=== PATIENT | female | born 1940 | race Caucasian/White ===

== ENCOUNTER 2016-09-28 09:29 | Outpatient (CLI) | payer MEDICARE, BC ==
[~2016-09-28] VITALS: Ht 165.1 cm; Wt 65.9 kg
[~2016-09-28 09:29] MED LIST: CALCIUM PO; CHILDREN'S ASPI81 MG PO; GLUCOSAMINE HC500 MG PO; VITAMIN B-121000 MCG PO; VITAMIN D31000 UNIT PO
[2016-09-28 09:52] VITALS: BP 96/50; Ht 165.1 cm; Wt 65.9 kg
--- NOTE | 2016-09-28 10:04 | NUR ---
0945 ASSISTED TO ROM. RESP EVEN AND NONLABORED. ASSESSMENT DONE V/S TAKEN. RECHECKED B/P AND 143/75 SPOUSE STATED IT IS NORMALLY NOT LOW ORIGINALLY GOT 96/50.
--- NOTE | 2016-09-28 10:06 | NUR ---
0956 PROLIA INFORMATION PROVIDE. PROLIA INJECTION GIVEN LT ARM SUBCUTANEOUS SITE CLEAR. TOLERATED IT WELL.
--- NOTE | 2016-09-28 10:08 | NUR ---
1008 DISCHARGE INSTRUCTIONS GIVEN AND TOLD TO CONTINUE HOME MEDS AND DIET AND FOR PROLIA IN 6 MONTHS.
--- NOTE | 2016-09-28 10:18 | NUR ---
1015 LEFT VIA W/C WITH SPOUSE.
== END 2016-09-28 10:16 | disposition home or self-care (01) ==
LOC: D.OPS 09:29
DX: M81.0 Age-related osteoporosis without current pathological fracture (principal)

== ENCOUNTER 2017-03-29 10:31 | Outpatient (CLI) | payer MEDICARE, BC ==
[~2017-03-29] VITALS: Ht 165.1 cm; Wt 62.7 kg
[2017-03-29 11:14] VITALS: BP 128/78; Ht 165.1 cm; Wt 62.7 kg
== END 2017-03-29 11:28 ==
LOC: D.OPS 10:31
DX: M81.0 Age-related osteoporosis without current pathological fracture (principal)

== ENCOUNTER 2017-09-23 10:34 | Emergency (ER) | payer MEDICARE, BC ==
[2017-03-29 11:14] VITALS: BMI 23.0
[2017-09-23 11:37] LABS: BASOPHILS 0.4 % (0-2); EOSINOPHILS 1.7 % (0-7); HEMATOCRIT 38.4 % (36.0-48.0); HEMOGLOBIN 12.7 g/dL (12-16); IMMATURE GRANULOCYTES 0.1 % (0-5); LYMPHOCYTES 23.1 % (15-50); MCH 31.3 pg (26.0-34.0); MCHC 33.1 g/dL (31.0-37.0); MCV 94.6 fL (80.0-100.0); MEAN PLATELET VOLUME 9.4 fL (7.4-10.4); NEUTROPHILS 67.7 % (40-80); PLATELET COUNT 301 10x3/uL (130-400); RBC 4.06 10x6/uL (4.00-5.40); RDW 13.9 % (11.5-14.5); WBC 9.3 10x3/uL (4.8-10.8)
[2017-09-23 12:04] LABS: ALBUMIN 3.4 g/dL (3.4-5.0); ALKALINE PHOSPHATASE 84 U/L (46-116); ALT (SGPT) 18 U/L (10-68); CALC OSMOLALITY 278 mosm/kg (275-300); CALCIUM 9.8 mg/dL (8.5-10.1); CARBON DIOXIDE 28.1 mmol/L (21.0-32.0); CHLORIDE - SERUM 104 mmol/L (98-107); CHOL - HDL RATIO 4.7 ratio (2.3-4.1); CHOLESTEROL, TOTAL 222 mg/dL (0-200); CKMB 0.9 U/L (0.0-3.6); CREATINE KINASE 83 UL (21-215); CREATININE - SERUM 0.9 mg/dL (0.6-1.3); GLUCOSE 86 mg/dL (74-106); HDL CHOLESTEROL 47 mg/dL (32-96); LDL CHOLESTEROL 144 mg/dL (0-100); LDL-HDL RATIO 3.1 ratio (1.5-3.5); POTASSIUM - SERUM 4.6 mmol/L (3.5-5.1); PROTEIN - SERUM 7.2 g/dL (6.4-8.2); SODIUM 140 mmol/L (136-145); TRIGLYCERIDE 159 mg/dL (30-200); TROPONIN-I < 0.017 ng/mL (0.000-0.060); eGFR NON AFRICAN AMERICAN 65 mL/min (90-120)
[2017-09-23 12:05] LABS: UREA NITROGEN 16 mg/dL (7-18)
== END 2017-09-23 14:10 | disposition home or self-care (01) ==
LOC: D.ER 10:34
PROVIDERS: Family Medicine
DX: R07.89 Other chest pain (principal); I10 Essential (primary) hypertension; G30.9 Alzheimer's disease, unspecified; F02.80 Dementia in other diseases classified elsewhere, unspecified severity, without behavioral disturbance, psychotic disturbance, mood disturbance, and anxiety; R00.1 Bradycardia, unspecified

== ENCOUNTER 2017-09-27 12:55 | Outpatient (CLI) | payer MEDICARE, BC ==
[~2017-09-27] VITALS: Ht 165.1 cm; Wt 61.4 kg
[2017-09-27 14:00] VITALS: BP 139/75; Ht 165.1 cm; Wt 61.4 kg
== END 2017-09-27 14:15 | disposition home or self-care (01) ==
LOC: D.OPS 12:55
DX: M81.0 Age-related osteoporosis without current pathological fracture (principal)

== ENCOUNTER 2018-04-03 12:43 | Outpatient (CLI) | payer MEDICARE, BC ==
[~2018-04-03] VITALS: Ht 165.1 cm; Wt 63.6 kg
[2018-04-03 14:02] VITALS: BP 145/70; Ht 165.1 cm; Wt 63.6 kg
== END 2018-04-03 14:19 | disposition home or self-care (01) ==
LOC: D.OPS 12:43
DX: M81.0 Age-related osteoporosis without current pathological fracture (principal); Z01.812 Encounter for preprocedural laboratory examination

== ENCOUNTER 2018-09-27 12:13 | Emergency (ER) | payer MEDICARE, BC ==
[~2018-09-27] VITALS: Ht 165.1 cm; Wt 59.1 kg
[2018-09-27 12:26] VITALS: Ht 165.1 cm; Wt 59.1 kg
[2018-09-27 13:11] LABS: BASOPHILS 0.2 % (0-2); EOSINOPHILS 0.1 % (0-7); HEMOGLOBIN 12.9 g/dL (12-16); IMMATURE GRANULOCYTES 0.2 % (0-5); LYMPHOCYTES 11.6 % (15-50); MCHC 33.1 g/dL (31.0-37.0); MCV 93.8 fL (80.0-100.0); MONOCYTES 3.5 % (2-11); NEUTROPHILS 84.4 % (40-80); RBC 4.16 10x6/uL (4.00-5.40); RDW 13.5 % (11.5-14.5); WBC 11.9 10x3/uL (4.8-10.8)
[2018-09-27 13:17] LABS: PLATELET COUNT 441 10x3/uL (130-400)
[2018-09-27 13:31] LABS: ALBUMIN 3.4 g/dL (3.4-5.0); ALKALINE PHOSPHATASE 115 U/L (46-116); ALT (SGPT) 27 U/L (10-68); CALCIUM 9.7 mg/dL (8.5-10.1); CARBON DIOXIDE 26.4 mmol/L (21.0-32.0); CKMB 1.2 U/L (0.0-3.6); CREATINE KINASE 59 UL (21-215); CREATININE - SERUM 1.4 mg/dL (0.6-1.3); GLUCOSE 164 mg/dL (74-106); MAGNESIUM - SERUM 2.2 mg/dL (1.8-2.4); PROTEIN - SERUM 8.2 g/dL (6.4-8.2); THYROID STIMULATING HORMONE 2.34 uIU/mL (0.36-3.74); TROPONIN-I < 0.017 ng/mL (0.000-0.060); UREA NITROGEN 29 mg/dL (7-18); eGFR NON AFRICAN AMERICAN 39 mL/min (90-120)
[2018-09-27 13:32] LABS: CALC OSMOLALITY 288 mosm/kg (275-300); CHLORIDE - SERUM 101 mmol/L (98-107); POTASSIUM - SERUM 3.1 mmol/L (3.5-5.1); SODIUM 140 mmol/L (136-145)
[2018-09-27 14:33] LABS: APTT 32.4 SECONDS (22.8-39.4); INR 1.07 (0.85-1.17); PROTIME 13.4 SECONDS (11.6-15.0)
[2018-09-27 14:53] LABS: APPEARANCE CLOUDY (CLEAR); BILIRUBIN NEGATIVE (NEGATIVE); COLOR YELLOW (YELLOW); EPITHELIAL CELLS 0-5 /hpf (0-5); GLUCOSE NEGATIVE (NEGATIVE); KETONE NEGATIVE (NEGATIVE); NITRITE NEGATIVE (NEGATIVE); PROTEIN 1+ mg/dL (NEGATIVE); RED CELLS - URINE 0-5 /hpf (0-5); SPECIFIC GRAVITY 1.015 (1.005-1.020); UROBILINOGEN NORMAL (NORMAL)
[2018-09-27 14:54] LABS: BACTERIA MANY /hpf (NONE SEEN)
[2018-09-27 14:55] LABS: UDS - AMPHET NEGATIVE QUAL (NEGATIVE); UDS - BARB NEGATIVE QUAL (NEGATIVE); UDS - BENZO NEGATIVE QUAL (NEGATIVE); UDS - COCAINE NEGATIVE QUAL (NEGATIVE); UDS - OPIATE NEGATIVE QUAL (NEGATIVE); UDS - PCP NEGATIVE QUAL (NEGATIVE); UDS - THC NEGATIVE QUAL (NEGATIVE)
[2018-09-27] MEDS ORDERED: SULFAMETHOXAZOL1 TA3 PO (15:07)
[2018-09-27 17:39] VITALS: BP 169/87
== END 2018-09-27 17:40 | disposition home or self-care (01) ==
LOC: D.ER 12:13
PROVIDERS: Family Medicine
DX: F03.90 Unspecified dementia, unspecified severity, without behavioral disturbance, psychotic disturbance, mood disturbance, and anxiety (principal); I10 Essential (primary) hypertension; N28.9 Disorder of kidney and ureter, unspecified

== ENCOUNTER 2018-10-09 12:33 | Outpatient (CLI) | payer MEDICARE, BC ==
[~2018-10-09] VITALS: Ht 165.1 cm; Wt 60.5 kg
[~2018-10-09 12:33] MED LIST changes: +SULFAMETHOXAZOL1 TA3 PO
[2018-10-09 12:51] VITALS: BP 114/60; Ht 165.1 cm; Wt 60.5 kg
== END 2018-10-09 12:58 | disposition home or self-care (01) ==
LOC: D.OPS 12:33
PROVIDERS: ATTEND Family Medicine
DX: M18.0 Bilateral primary osteoarthritis of first carpometacarpal joints (principal)

== ENCOUNTER 2019-04-16 12:12 | Outpatient (CLI) | payer MEDICARE, BC ==
[~2019-04-16] VITALS: Ht 165.1 cm; Wt 61.4 kg
[2019-04-16 12:33] VITALS: BP 183/78; Ht 165.1 cm; Wt 61.4 kg
== END 2019-04-16 13:09 | disposition home or self-care (01) ==
LOC: D.OPS 12:12
PROVIDERS: ATTEND Family Medicine
DX: M81.0 Age-related osteoporosis without current pathological fracture (principal)